=== PATIENT | female | born 1980 | race Caucasian/White ===

== ENCOUNTER 2019-04-04 15:34 | Emergency (ER) | payer MEDICAID ==
[~2019-04-04] VITALS: Ht 170.2 cm; Wt 83.0 kg
[2019-04-04] MEDS ORDERED: PROMETHAZINE 25 MG/ML, 1ML ONE (15:54)
[2019-04-04] MEDS ORDERED: PROMETHAZINE 25 MG/ML, 1ML IM ONE (16:00)
[2019-04-04 16:09] LABS: BASOPHILS # (AUTO) 0.05 x10^3/uL (0-0.1); BASOPHILS % (AUTO) 0 % (0-1); EOSINOPHILS % (AUTO) 0 % (1-7); LYMPHOCYTES # (AUTO) 2.16 x10^3/uL (1-3.4); LYMPHOCYTES % (AUTO) 17 % (22-44); MD NO; MEAN CORPUSCULAR HGB CONC 33.2 g/dL (32.4-35.8); MEAN CORPUSCULAR VOLUME 93.5 fL (80-100); MEAN PLATELET VOLUME 10.1 fL (7.4-10.4); MONOCYTES # (AUTO) 0.76 x10^3/uL (0.2-0.8); MONOCYTES % (AUTO) 6 % (2-9); NEUTROPHILS # (AUTO) 9.66 x10^3/uL (1.8-6.8); NEUTROPHILS % (AUTO) 77 % (42-75); PLATELET COUNT 220 x10^3/uL (130-400); RED BLOOD COUNT 5.18 x10^6/uL (3.82-5.3); RED CELL DISTRIBUTION WIDTH 13.5 % (9.6-15.2)
[2019-04-04 16:19] LABS: ALANINE AMINOTRANSFERASE 27 U/L (12-78); ALBUMIN 4.3 g/dL (3.4-5.0); ANION GAP 13 mmol/L (5-15); CALCIUM 9.1 mg/dL (8.5-10.1); CHLORIDE 93 mmol/L (98-107); CREATININE 1.15 mg/dL (0.55-1.02)
[2019-04-04 16:25] LABS: ALKALINE PHOSPHATASE 89 U/L (45-117); BILIRUBIN,TOTAL 3.3 mg/dL (0.2-1.0); TOTAL PROTEIN 9.3 g/dL (6.4-8.2)
[2019-04-04 16:51] VITALS: BP 115/73
--- NOTE | 2019-04-04 16:53 | NUR ---
BREAK NOTE: LABS REVIEWED. DR. WHITLOCK AT THE BEDSIDE. IV ACCESS ESTABLISHED. PT.'S NS BOLUS IS INFUSING. UA COLLECTED AND SENT. PT. STATES MINIMAL RELIEF FROM PHENERGAN. ZOFRAN IS ORDERED. PT. WAS PLACED ON THE [employer]. VSS. PT. IS RESTING WITH THE HOB ELEVATED GREATER THAN 30 DEGREES. NO FURTHER CONCERNS AT THIS TIME.
[2019-04-04] MEDS ORDERED: ONDANSETRON 2MG/ML, 2ML ONE (16:54)
[2019-04-04] MEDS ORDERED: POTASSIUM CHLORIDE 40 MEQ in SODIUM CHLORIDE 0.9% 500 ML IV ONE (17:00)
[2019-04-04] MEDS ORDERED: SODIUM CHLORIDE 0.9% 1,000ML IVBOLUS ONE (17:00)
[2019-04-04] MEDS ORDERED: SODIUM CHLORIDE FLUSH 10ML SYR IVF ONE (17:00)
[2019-04-04] MEDS ORDERED: ONDANSETRON 2MG/ML, 2ML IVPush ONE (17:00)
[2019-04-04 17:10] LABS: CULTURE INDICATED? YES; MICROSCOPIC INDICATED
[2019-04-04] MEDS ORDERED: POTASSIUM CHLORIDE 20 MEQ TAB.ER.PRT ONE ×2 (17:38→17:41)
[2019-04-04] MEDS ORDERED: POTASSIUM CHLORIDE 20 MEQ TAB.ER.PRT PO ONE (18:30)
== END 2019-04-04 18:40 | disposition home or self-care (01) ==
LOC: ED 17:15
DX: R10.12 Left upper quadrant pain (principal); R11.2 Nausea with vomiting, unspecified; E87.6 Hypokalemia; Z87.19 Personal history of other diseases of the digestive system; Z87.891 Personal history of nicotine dependence
CPT/HCPCS: 36415; 74021; 80053; 81001; 83690; 84703; 85025; 87086; 96365; 96372; 96375; 99284; J2405; J2550; J3480; J7030; J7040